=== PATIENT | male | born 1980 | race Caucasian/White ===

== ENCOUNTER 2016-08-16 10:19 | Day surgery (SDC) | payer BC ==
[2016-08-16] MEDS ORDERED: LACTATED RINGERS 1,000 ML IV ONE (10:48)
[2016-08-16 10:59] VITALS: RESP 18; TEMP 97.9
[2016-08-16] MEDS ORDERED: LIDOCAINE 1% 20 ML VIAL (10MG/ML) FOR IV START INTRADERMA ONE (11:12)
[2016-08-16] MEDS ORDERED: PROPOFOL 10 MG/ML 20 ML VIAL IV ONE (12:23)
--- NOTE | 2016-08-16 12:49 | P.PCN ---
Date of Procedure: 08/16/16 Procedure(s) Performed: Procedure: Esophagogastroduodenoscopy and biopsy. Preoperative diagnosis: Chronic reflux symptoms. Postoperative diagnosis: 1. Sliding hiatal hernia with no obvious esophagitis or complicated reflux disease. 2. Mild antral gastritis. Preparation sedation: Was provided by anesthesia. Brief clinical history: The patient is a 55-year-old male who is referred for this evaluation because of chronic reflux symptoms to assess for esophagitis or complicated reflux disease. The patient has frequent reflux and regurgitation and has taken acid suppressive therapy on and off over the last few years. No other alarm symptoms or anemia. Procedure: With the patient on his left lateral decubitus position and after informed consent and adequate sedation, I passed the Olympus-GIF 160 video upper endoscope through the cricopharyngeus down the esophagus. GE junction was irregular and was around 40 cm from the incisors and there was a small sliding hiatal hernia. The esophagus did not show any obvious erosions, ulcers , strictures or Barker's esophagus. The endoscope was then passed into the stomach which was insufflated with air and inspected in detail including the retroflex view in the cardia. There was some mottling and erythema in the antrum but no ulcers or erosions. Pyloric channel, duodenal bulb, post bulbar area and descending duodenum appeared within normal limits. I obtained multiple biopsies from the duodenum, antrum and esophagus then the endoscope was withdrawn. The patient tolerated the procedure well. Plan: The patient was reassured. Will await biopsy results. I suggested antireflux diet and measures and consideration would be made to use the minimal acid suppressive therapy doses at the longest interval required between doses to keep his symptoms under control. He will follow up with you as planned and I will be happy to see in the office of his symptoms change or worsen.
[2016-08-16 13:02] VITALS: BP 121/76; PULSE 68
== END 2016-08-16 13:26 | disposition home or self-care (01) ==
LOC: ORWHC2ENDO 10:19
DX: K29.70 Gastritis, unspecified, without bleeding (principal); K21.9 Gastro-esophageal reflux disease without esophagitis; K44.9 Diaphragmatic hernia without obstruction or gangrene; Z79.899 Other long term (current) drug therapy
CPT/HCPCS: 88305; 88342; 43239; J2704

== ENCOUNTER 2018-12-18 03:28 | Observation (INO) | payer BC, OTHER ==
[2018-12-18 03:36] VITALS: RESP 18
--- NOTE | 2018-12-18 03:59 | ED ---
Chest Pain HPI - General Chief Complaint: Chest Pain Stated Complaint: Chest Pain Lft Arm Pain Time Seen by Provider: 12/18/18 03:47 Source: patient Mode of arrival: wheelchair Limitations: no limitations - History of Present Illness Initial Comments: Shlomo Zavala is a 38 yo male who presents to the emergency department today for evaluation of chest pain. Patient reports that intermittently over the past week she has noticed that he has exertional dyspnea, and easily becomes diaphoretic even when it's not hot outside. Patient reports that this evening he was at [employer] for groceries when he began to feel pressure in his chest, shortness of breath and feeling as though his left arm was getting heavy. Patient had to stop walking and rest. He then returned home and reported feeling better upon laying down, however after discussing symptoms with his she encouraged him to come to the ER for further evaluation. Patient has not seen a PCP for over 2 years, he states that he checks his BP when he is at [facility] and has noted that he has been hypertensive recently. - Related Data Home Medications Medication Instructions Recorded Confirmed Cold Medicine(Unknown) 1 tab PO TID PRN 08/16/16 08/16/16 Omeprazole [PriLOSEC] 10 mg PO DAILY PRN 08/16/16 08/16/16 Allergies Allergy/AdvReac Type Severity Reaction Status Date / Time No Known Allergies Allergy Verified 12/18/18 03:35 Review of Systems ROS Statement: Those systems with pertinent positive or pertinent negative responses have been documented in the HPI. ROS Other: All systems not noted in ROS Statement are negative. EKG Findings - EKG Comments: EKG Findings:: EKG was obtained due to complaining of chest pain, EKG was obtained at 3:44 AM, rate is 89, rhythm is sinus with PACs, there is a normal axis there are normal intervals, NV 160, care is 82, QTc is 464 there are no acute ST elevations or depressions there is no evidence of acute ischemia or infarction Past Medical History Additional Past Medical History / Comment(s): HX KIDNEY STONE IN BLADDER History of Any Multi-Drug Resistant Organisms: None Reported Past Surgical History: Tonsillectomy Additional Past Surgical History / Comment(s): JAWS WIRED FOR FX, Past Anesthesia/Blood Transfusion Reactions: No Reported Reaction Smoking Status: Former smoker Past Alcohol Use History: None Reported Past Drug Use History: None Reported General Exam - General Exam Comments Initial Comments: Physical Exam GENERAL: Patient appears much older than stated age HENT: Normocephalic, Atraumatic. Poor dentition, multiple missing teeth EYES: PERRL, EOMI PULMONARY: Unlabored respirations. No audible rales rhonchi or wheezing was noted. CARDIOVASCULAR: There is a regular rate and rhythm without any murmurs gallops or rubs. ABDOMEN: Morbidly obese Soft and nontender with normal bowel sounds. SKIN: Skin is clear with no lesions or rashes and otherwise unremarkable. : Deferred NEUROLOGIC: Patient is alert and oriented x3. Moving all extremities spontaneously MUSCULOSKELETAL: Normal extremities with adequate strength and full range of motion. No lower extremity swelling or edema. No calf tenderness. 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 ] Respiratory 18 18 18 Rate Blood Pressure 130/78 101/69 O2 Sat by Pulse 97 98 Oximetry Chest Pain MDM - MDM The patient was seen and evaluated upon arrival to the emergency department Patient with a history concerning for acute coronary syndrome as he has exertional chest pain, radiating the left arm with lightheadedness and diaphoresis Patient with multiple risk factors for cardiac disease including obesity, untreated hypertension, former smoker, family history, male gender Cardiac workup was initiated Labs were unremarkable however considering the patient's multiple risk factors and concerning history and do feel he warrants evaluation by cardiology. Patient does not have good outpatient follow-up he has not seen a primary care physician in greater than 2 years. I do not feel would be safe to discharge the patient home at this time as I do not feel he would have appropriate evaluation. Patient is agreeable to staying in the hospital. Patient care was discussed with Dr. Jones of the [facility] who agrees with plan for placing the patient observation with a consult to cardiology. Disposition Clinical Impression: Chest pain Disposition: ADMITTED IP TO THIS [facility] Condition: Stable Referrals: None,Stated [Primary Care Provider] - 1-2 days
[2018-12-18 04:18] LABS: Basophils # (A) 0.1 k/uL (0-0.2); Basophils % (A) 1 %; Eosinophils # (A) 0.3 k/uL (0-0.7); Eosinophils % (A) 4 %; HCT 46.6 % (39.0-53.0); HGB 15.2 gm/dL (13.0-17.5); Lymphocytes # (A) 1.9 k/uL (1.0-4.8); Lymphocytes % (A) 32 %; MCH 27.6 pg (25.0-35.0); MCHC 32.7 g/dL (31.0-37.0); MCV 84.6 fL (80.0-100.0); Mean Platelet Volume 7.5; Monocytes # (A) 0.4 k/uL (0-1.0); Monocytes % (A) 6 %; Neutrophils # (A) 3.3 k/uL (1.3-7.7); Neutrophils % (A) 55 %; Platelet Count 187 k/uL (150-450); RBC 5.51 m/uL (4.30-5.90); RDW 13.2 % (11.5-15.5)
[2018-12-18 04:34] LABS: D-Dimer 0.32 mg/L FEU (<0.60); INR 0.9 (<1.2); Partial Thromboplastin Time 24.3 sec (22.0-30.0); Prothrombin Time 9.7 sec (9.0-12.0)
[2018-12-18 04:36] LABS: ALT 57 U/L (21-72); AST 40 U/L (17-59); African American GFR (CKD) >90 (>60 ml/min/1.73 sqM); Alkaline Phosphatase 120 U/L (38-126); Anion Gap 8 mmol/L; Blood Urea Nitrogen 14 mg/dL (9-20); Calcium 8.8 mg/dL (8.4-10.2); Carbon Dioxide 26 mmol/L (22-30); Chloride 106 mmol/L (98-107); Glucose 104 mg/dL (74-99); Potassium 3.7 mmol/L (3.5-5.1); Sodium 140 mmol/L (137-145); Total Bilirubin 0.5 mg/dL (0.2-1.3); Total Protein 7.3 g/dL (6.3-8.2)
--- NOTE | 2018-12-18 05:01 | XR ---
EXAM: XR Chest, 2 Views CLINICAL HISTORY: Chest Pain TECHNIQUE: Frontal and lateral views of the chest. COMPARISON: No relevant prior studies available. FINDINGS: Lungs: Unremarkable. No consolidation. Pleural space: Unremarkable. No pleural effusions. No pneumothorax. Heart: Unremarkable. No cardiomegaly. Mediastinum: Unremarkable. Bones/joints: Unremarkable. IMPRESSION: No acute cardiopulmonary process.
[2018-12-18] MEDS ORDERED: NITROGLYCERIN SL TABS 0.4 MG TAB SUBLINGUAL PRN (06:05)
--- NOTE | 2018-12-18 09:33 | ECHOF ---
Referral Reason:chest pain MEASUREMENTS -------- HEIGHT: 175.3 cm WEIGHT: 138.3 kg BP: 132/84 RVIDd: 3.1 cm (< 3.3) IVSd: 1.5 cm (0.6 - 1.1) LVIDd: 3.6 cm (3.9 - 5.3) LVPWd: 1.4 cm (0.6 - 1.1) IVSs: 1.6 cm LVIDs: 2.7 cm LVPWs: 1.8 cm LAESV Index (A-L): 13.60 ml/m Ao Diam: 3.2 cm (2.0 - 3.7) AV Cusp: 2.2 cm (1.5 - 2.6) LA Diam: 3.2 cm (2.7 - 3.8) MV EXCURSION: 19.783 mm (> 18.000) MV EF SLOPE: 133 mm/s (70 - 150) EPSS: 0.5 cm MV E Oscar: 0.58 m/s MV DecT: 172 ms MV A Oscar: 0.49 m/s MV E/A Ratio: 1.18 RAP: 5.00 mmHg RVSP: 17.98 mmHg FINDINGS -------- Sinus rhythm. This was a technically difficult study with suboptimal apical views. The left ventricular size is normal. There is moderate concentric left ventricular hypertrophy. O verall left ventricular systolic function is normal with, an EF between 55 - 60 %. The diastolic fi lling pattern is normal for the age of the patient 7.01. The right ventricle is normal in size. Normal LA size by volume 22+/-6 ml/m2. The right atrial size is normal. Lumason used Interatrial and interventricular septum intact. The aortic valve is trileaflet and appears structurally normal. There is no evidence of aortic regu rgitation. There is no evidence of aortic stenosis. The mitral valve is normal. No mitral regurgitation. Trace tricuspid regurgitation present. There is no evidence of pulmonary hypertension. The right ventricular systolic pressure, as measured by Doppler, is 17.98mmHg. There is no pulmonic regurgitation present. The aortic root size is normal. IVC Not well visulized, due to Pt. Obesity. There is no pericardial effusion. CONCLUSIONS -------- 1. Sinus rhythm. 2. This was a technically difficult study with suboptimal apical views. 3. The left ventricular size is normal. 4. There is moderate concentric left ventricular hypertrophy. 5. Overall left ventricular systolic function is normal with, an EF between 55 - 60 %. 6. The diastolic filling pattern is normal for the age of the patient 7.01 7. The right ventricle is normal in size. 8. Normal LA size by volume 22+/-6 ml/m2. 9. The right atrial size is normal. 10. Lumason used 11. Interatrial and interventricular septum intact. 12. The aortic valve is trileaflet and appears structurally normal. 13. There is no evidence of aortic regurgitation. 14. There is no evidence of aortic stenosis. 15. The mitral valve is normal. 16. No mitral regurgitation. 17. Trace tricuspid regurgitation present. 18. There is no evidence of pulmonary hypertension. 19. The right ventricular systolic pressure, as measured by Doppler, is 17.98mmHg. 20. There is no pulmonic regurgitation present. 21. The aortic root size is normal. 22. IVC Not well visulized, due to Pt. Obesity. 23. There is no pericardial effusion. RESEARCH PROGRAM COORDINATOR: Christal Bella RDCS
[2018-12-18 10:23] LABS: Cholesterol 230 mg/dL (<200); HDL Cholesterol 36 mg/dL (40-60); LDL Cholesterol,Calculated 154 mg/dL (0-99); Triglycerides 201 mg/dL (<150)
--- NOTE | 2018-12-18 11:22 | P.CRDCN ---
History of Present Illness History of present illness: This is a 38-year-old male past medical history significant for kidney stone. He also has a remote history of gastroesophageal reflux disease. He denies history of coronary artery disease, hypertension, dyslipidemia or diabetes mellitus. He does not follow with a electrical tests supervisor for any reason. His father has a history of premature coronary artery disease in his first cardiac e vent in his early 40s. We have been asked to see him in consultation secondary to chest discomfort. He states intermittently for the previous few weeks he has been noticing a discomfort in the midsternal region. This comes at different times throughout the day and is intermittent and not necessarily associated with exertion or activity. He also describes a heavy sensation in both of his should ers. He states he was recently cutting grass and he had to stop due to increased fatigue of his upper extremities. Last night while he was doing some shopping at [facility] he became acutely short of breath and noticed heavy sensation in the left arm. 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 He denies any associated palpitations, nausea, vomiting or diaphoresis. He also discusses that his family's been telling him he has been slow to respond when I asked him typical questions lately and his states he has not been acting like himself. EKG reveals sinus mechanism with PACs noted, no acute ST or T wave abnormalities noted. Chest x-ray is negative for acute cardiopulmonary process. Laboratory data reviewed, WBC 6.0, hemoglobin 15.2, platelets 187, d-dimer 0.32, sodium 140, potassium 3.7, creatinine 1.16, magnesium 2.0, cardiac enzymes negative 2, LDL 154, HDL 36, triglycerides 201 and total cholesterol 230. At the time of my exam: CONSTITUTIONAL: Denies fever. Denies chills. EYES: Denies blurred vision. Denies vision changes. Denies eye pain. EARS, NOSE, MOUTH & THROAT: Denies headache. Denies sore throat. Denies ear pain. CARDIOVASCULAR: Denies chest pain. Denies shortness of breath. Denies orthopnea. Denies PND. Denies palpitations. RESPIRATORY: Denies cough. GASTROINTESTINAL: Denies abdominal pain. Denies diarrhea. Denies constipation. Denies nausea. Denies vomiting. MUSCULOSKELETAL: Denies myalgias. INTEGUMENTARY: Denies pruitis. Denies rash. NEUROLOGIC: Denies numbness. Denies tingling. Denies weakness. PSYCHIATRIC: Denies anxiety. Denies depression. ENDOCRINE: Denies fatigue. Denies weight change. Denies polydipsia. Denies polyurina. GENITOURINARY: Denies burning, hematuria or urgency with micturation. HEMATOLOGIC: Denies history of anemia. Denies bleeding. Blood pressure 132/84 heart rate 81 afebrile maintaining oxygen saturation on room air GENERAL: This is a 38-year-old male in no apparent distress at the time of my examination. Obese. HEENT: Head is atraumatic, normocephalic. Pupils are equal, round. Sclerae anicteric. Conjunctivae are clear. Mucous membranes of the mouth are moist. Neck is supple. There is no jugular venous distention. No carotid bruit is heard. LUNGS: Clear to auscultation no wheezes, rales or rhonchi. No chest wall tenderness is noted on palpation or with deep breathing. HEART: Regular rate and rhythm without murmurs, rubs or gallops. S1 and S2 heard. ABDOMEN: Soft, nontender. Bowel sounds are heard. No organomegaly noted. EXTREMITIES: No evidence of peripheral edema and no calf tenderness noted. VASCULAR: Radial and dorsalis pedis pulses palpated, no evidence of clubbing. NEUROLOGIC: Patient is awake, alert and oriented x3. ASSESSMENT Chest pain, atypical for angina. An acute coronary event has been ruled out. Dyslipidemia Family history of premature coronary artery disease Morbid obesity, BMI 45 PLAN Acute coronary event has been ruled out. Perform stress echocardiogram to assess for stress-induced cardiac ischemia. Obtain 2-D echocardiogram and Doppler study to assess cardiac structure and function. Lifestyle modifications for lowering of cholesterol recommended in the form of diet and exercise. If stress test is normal he is stable from a cardiac perspective. Follow up in the office with Dr. Moraes in 2-3 weeks. Thank you kindly for this consultation. Nurse Practitioner note has been reviewed, I agree with a documented findings and plan of care. Patient was seen and examined. Past Medical History Additional Past Medical History / Comment(s): HX KIDNEY STONE IN BLADDER History of Any Multi-Drug Resistant Organisms: None Reported Past Surgical History: Tonsillectomy Additional Past Surgical History / Comment(s): JAWS WIRED FOR FX, Past Anesthesia/Blood Transfusion Reactions: No Reported Reaction Smoking Status: Former smoker Past Alcohol Use History: None Reported Past Drug Use History: None Reported Medications and Allergies Home Medications Medication Instructions Recorded Confirmed Type No Known Home Medications 12/18/18 12/18/18 History Allergies Allergy/AdvReac Type Severity Reaction Status Date / Time No Known Allergies Allergy Verified 12/18/18 08:05 Physical Exam Vitals: Vital Signs Temp Pulse Pulse Pulse Resp BP BP 12/18/18 07:02 97.5 F L 81 18 132/84 12/18/18 06:21 97.8 F 73 18 107/73 12/18/18 05:06 97.8 F 82 18 101/69 12/18/18 04:00 92 18 12/18/18 03:32 98.0 F 99 18 130/78 Pulse Ox 12/18/18 07:02 97 12/18/18 06:21 100 12/18/18 05:06 98 12/18/18 04:00 12/18/18 03:32 97 Intake and Output 12/17/18 12/18/18 12/18/18 22:59 06:59 14:59 Other: Weight 138.346 kg Results 12/18/18 03:50 12/18/18 03:50 Cardiac Enzymes 12/18/18 12/18/18 Range/Units 03:50 03:50 AST 40 (17-59) U/L Troponin I <0.012 (0.000-0.034) ng/mL Coagulation 12/18/18 Range/Units 03:50 PT 9.7 (9.0-12.0) sec APTT 24.3 (22.0-30.0) sec CBC 12/18/18 Range/Units 03:50 WBC 6.0 (3.8-10.6) k/uL RBC 5.51 (4.30-5.90) m/uL Hgb 15.2 (13.0-17.5) gm/dL Hct 46.6 (39.0-53.0) % Plt Count 187 (150-450) k/uL Comprehensive Metabolic Panel 12/18/18 Range/Units 03:50 Sodium 140 (137-145) mmol/L Potassium 3.7 (3.5-5.1) mmol/L Chloride 106 (98-107) mmol/L Carbon Dioxide 26 (22-30) mmol/L BUN 14 (9-20) mg/dL Creatinine 1.16 (0.66-1.25) mg/dL Glucose 104 H (74-99) mg/dL Calcium 8.8 (8.4-10.2) mg/dL AST 40 (17-59) U/L ALT 57 (21-72) U/L Alkaline Phosphatase 120 (38-126) U/L Total Protein 7.3 (6.3-8.2) g/dL Albumin 4.0 (3.5-5.0) g/dL Current Medications Generic Name Dose Route Start Last Admin Trade Name Freq PRN Reason Stop Dose Admin Aspirin 325 mg 12/19/18 09:00 Aspirin PO DAILY NIMA Nitroglycerin 0.4 mg 12/18/18 06:05 Nitrostat SUBLINGUAL Q5M PRN Chest Pain Intake and Output 12/17/18 12/18/18 12/18/18 22:59 06:59 14:59 Other: Weight 138.346 kg 12/18/18 03:50 12/18/18 03:50
--- NOTE | 2018-12-18 12:04 | P.STRESS ---
- Stress Test Note Stress Test Results/Findings: Exam Performed: stress echo exercise with con Exam Date: 12/18/18 Reason for Exam: CHEST PAIN Height: 5 ft 9 in Weight: 138.346 kg Protocol: SCOTT Stage: 3 Duration of Exercise: 7:30 Resting Heart Rate: 83 Resting Blood Pressure: 144/76 Maximum Achieved Heart Rate: 160 Maximum Achieved Blood Pressure: 220/84 85% PMHR: 154 100% PMHR: 181 METS: 9.1 Technologist Comment: Stress Test Results/Findings: This is a of 38-year-old gentleman with history of ischemic heart disease in the family is admitted to the hospital with complaints of chest pain. EKGs and cardiac enzymes are negative. Stress data: Baseline EKG showed sinus rhythm with normal NH interval and QRS duration with occasional PVCs. Blood pressure at rest is 144/76 with pulse rate of 83. Patient walked on the Scott protocol for 7 minutes and 30 seconds achieving a maximal heart rate of 160 with a blood pressure 189/85. EKGs taken during and after exercise did not reveal any changes of ischemia. Patient did not express any chest pain. Echo data: The course studies done with contrast. There appears to be normal wa ll motion and thickening at rest. There is augmentation of wall motion and thickening in all the segments with exercise. Final impression #1. Negative stress test #2. Negative stress echo
[2018-12-18 12:34] VITALS: BP 113/74; PULSE 92; TEMP 98.1
--- NOTE | 2018-12-18 18:04 | P.HPIM ---
History of Present Illness H&P Date: 12/18/18 (Delayed carting seen at 1530) Chief Complaint: chest pain Patient 38-year-old male past medical history of GERD, obesity, and prior kidney stones who presented to the emergency department with complaints of chest breath. In the ER he underwent an extensive evaluation. His initial EKG was nonischemic. Initial troponin was negative. His initial vital signs were within normal limits. He was given an aspirin and admitted for further monitoring. He underwent 3 troponins which were negative. Cardiology was consulted. He underwent an exercise stress echo which showed an ejection fraction 55-60%, and no signs of ischemia. He was subsequently cleared by car diology for discharge. Patient seen and examined at bedside with present. He has been having intermittent chest pain and shortness of breath as prior to the December. 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 Since that point in time he has had intermittent chest pain and shortness of breath. Last night he started having some centralized chest pain or shortness of breath at [facility]. He went home and laid down which has been relieving his chest pain. However he did not at this point in time. He also notes that he has been having coughing fits where he coughs until he feels he cannot breathe and then has some tunneling vision but does not actually blacked out. He reports that when he experienced chest pain last night he had some left sided arm heaviness and numbness and tingling as well as feeling slightly dizzy. He had been seeing Dr. Moura in the past but has not seen him last several years. He has not been following with anybody. 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 He reports no history of tobacco abuse. He states that his father had significant heart disease but he is unsure if he had a Heart attack. He denies any wheezing, abnormal runny nose, stuffy nose, or productive cough. He reports that he has difficulty with acid reflux, but this is intermittent. He has been on a PPI in the past but stopped this. He reports that he consistently regurgitates food, but had a negative scope and has not been seen by GI in the last several years. We discussed his elevated cholesterol levels and initiating dietary changes versus a statin medication. At this point time he wishes to attempt dietary changes. We discussed the importance of him following up with a family physician for the above-stated complaint. He'll follow-up with Dr. Moura. Review of Systems Pertinent positives and negatives as discussed in HPI, a complete review of systems was performed and all other systems are negative. Past Medical History Additional Past Medical History / Comment(s): HX KIDNEY STONE IN BLADDER, GERD, significant exposure to chemicals. History of Any Multi-Drug Resistant Organisms: None Reported Past Surgical History: Tonsillectomy Additional Past Surgical History / Comment(s): JAWS WIRED FOR FX, Past Anesthesia/Blood Transfusion Reactions: No Reported Reaction Smoking Status: Former smoker Past Alcohol Use History: None Reported Past Drug Use History: None Reported Additional History: Works in [employer], lives with sife and 7 children - Past Family History father Additional Family Medical History / Comment(s): heart disease Medications and Allergies Home Medications Medication Instructions Recorded Confirmed Type No Known Home Medications 12/18/18 12/18/18 History Allergies Allergy/AdvReac Type Severity Reaction Status Date / Time No Known Allergies Allergy Verified 12/18/18 08:05 Physical Exam Osteopathic Statement: *. No significant issues noted on an osteopathic structural exam other than those noted in the History and Physical/Consult. Vitals: Vital Signs Temp Pulse Pulse Pulse Resp BP BP 12/18/18 12:33 98.1 F 92 18 113/74 12/18/18 07:02 97.5 F L 81 18 12/18/18 06:21 97.8 F 73 18 107/73 12/18/18 05:06 97.8 F 82 18 101/69 12/18/18 04:00 92 18 12/18/18 03:32 98.0 F 99 18 130/78 BP Pulse Ox 12/18/18 12:33 97 12/18/18 07:02 132/84 97 12/18/18 06:21 100 12/18/18 05:06 98 12/18/18 04:00 12/18/18 03:32 97 Intake and Output 12/18/18 12/18/18 12/18/18 06:59 14:59 22:59 Intake Total 440 Balance 440 Intake: Oral 240 Other 200 Other: Voiding Method Toilet Weight 138.346 kg General: non toxic, no distress, appears at stated age, Obesity Derm: no unusual rashes/lesions no unusual ecchymoses, warm, dry Head: atraumatic, normocephalic, symmetric Eyes: EOMI, no lid lag, anicteric sclera, pupils equal round reactive to light ENT: Nose and ears atraumatic, no thrush, no pharyngeal erythema Neck: No thyromegaly, no cervical lymphadenopathy, trachea midline, supple Mouth: no lip lesion, mucus membranes moist, poor dentition Cardiovascular: S1S2 reg, no murmur, positive posterior tibial pulse bilateral, no edema, capillary refill less than 2 seconds, + reproducible chest pain Lungs: CTA bilateral, no rhonchi, no rales , no accessory muscle use Abdominal: soft, nontender to palpation, no guarding, no appreciable organomegaly, normal bowel sounds Ext: no gross muscle atrophy, muscle strength 5 out of 5 in all 4 extremities grossly, no contractures, Neuro: CN II-XI grossly intact, light touch intact all 4 extremities, finger to nose within normal limits, Psych: Alert, oriented, appropriate affect Results CBC & Chem 7: 12/18/18 03:50 12/18/18 03:50 Labs: Abnormal Lab Results - Last 24 Hours (Table) 12/18/18 12/18/18 Range/Units 03:50 09:39 Glucose 104 H (74-99) mg/dL Triglycerides 201 H (<150) mg/dL Cholesterol 230 H (<200) mg/dL LDL Cholesterol, Calc 154 H (0-99) mg/dL HDL Cholesterol 36 L (40-60) mg/dL Chest x-ray: report reviewed Thrombosis Risk Factor Assmnt - DVT/VTE Prophylaxis DVT/VTE Prophylaxis: Low risk, early ambulation encouraged - Choose All That Apply Any of the Below Risk Factors Present?: No Other Risk Factors: No Thrombosis Risk Factor Assessment Level: Very Low Risk Assessment and Plan Assessment: Atypical chest pain -Stress test negative, troponin negative -Continue outpatient evaluation with Dr. Herring Dyslipidemia -Statin medication suggested however patient would like to try weight loss Morbid obesity with BMI 45 -Outpatient structured weight loss Shortness of breath -Likely multifactorial due to decreased exercise tolerance due to morbid obesity, possible component of asthma/COPD, could also be a cough secondary to significant acid reflux. Emphasized the importance of continued follow-up with PCP for further monitoring and testing. This note will serve as H adn P and discharge summary. Patient will follow with Dr. Moura and Dr. Herring for further evaluation. I discussed with him the importance of follow-up to complete testing such as pulmonary function testing to rule out exercise-induced asthma or COPD secondary to significant factory work. I also suggested trial of the PPI at this point in time he declined. I suggested that he follow-up with Dr. Moura regarding this. He also wishes to attempt dietary modification order to control his cholesterol profile. He is not comfortable starting a statin medication. He realizes he will need a 10% reduction in his weight. I also discussed the possibility of costochondritis and possibly arthritis of the cervical spine causing his arm sym ptoms. Again suggested follow-up with the primary care physician as this is not a be further evaluated in the hospital. I did tell him and his that should he have significant chest pain or shortness of breath he should return to the hospital and seek further evaluation.
[2018-12-19] MEDS ORDERED: ASPIRIN 325 MG TAB PO SCH (09:00)
--- NOTE | 2018-12-21 17:02 | ECHOS ---
Stress Test Results/Findings: Exam Performed: stress echo exercise with con Exam Date: 12/18/18 Reason for Exam: CHEST PAIN Height: 5 ft 9 in Weight: 138.346 kg Protocol: SCOTT Stage: 3 Duration of Exercise: 7:30 Resting Heart Rate: 83 Resting Blood Pressure: 144/76 Maximum Achieved Heart Rate: 160 Maximum Achieved Blood Pressure: 220/84 85% PMHR: 154 100% PMHR: 181 METS: 9.1 Technologist Comment: Stress Test Results/Findings: This is a of 38-year-old gentleman with history of ischemic heart disease in the family is admitted to the hospital with complaints of chest pain. EKGs and cardiac enzymes are negative. Stress data: Baseline EKG showed sinus rhythm with normal [place] interval and QRS duration with occasional PVCs. Blood pressure at rest is 144/76 with pulse rate of 83. Patient walked on the Scott protocol for 7 minutes and 30 seconds achieving a maximal heart rate of 160 with a blood pressure 189/85. EKGs taken during and after exercise did not reveal any changes of ischemia. Patient did not express any chest pain. Echo data: The course studies done with contrast. There appears to be normal wall motion and thickening at rest. There is augmentation of wall motion and thickening in all the segments with exercise. Final impression #1. Negative stress test #2. Negative stress echo MTDD
== END 2018-12-18 16:45 | disposition home or self-care (01) ==
LOC: EC 03:28 → 1SOBS 06:07
PROVIDERS: ADMIT Internal Medicine; ATTEND Internal Medicine
DX: R07.89 Other chest pain (principal); R06.02 Shortness of breath; I10 Essential (primary) hypertension; E66.01 Morbid (severe) obesity due to excess calories; Z68.42 Body mass index [BMI] 45.0-49.9, adult; K21.9 Gastro-esophageal reflux disease without esophagitis; E78.5 Hyperlipidemia, unspecified; Z77.098 Contact with and (suspected) exposure to other hazardous, chiefly nonmedicinal, chemicals; Z87.442 Personal history of urinary calculi; Z87.891 Personal history of nicotine dependence; Z82.49 Family history of ischemic heart disease and other diseases of the circulatory system
CPT/HCPCS: 99285; 36415; 93005; 85379; 80061; 80053; 83735; 84484; 85025; 85610; 85730; 71046; G0378; C8929; C8930; Q9950; 93306; 93351

== ENCOUNTER 2020-07-12 22:49 | Emergency (ER) | payer OTHER ==
[2020-07-12 22:54] VITALS: BP 140/89; PULSE 93; RESP 16; TEMP 98.5
[2020-07-13 00:31] LABS: Basophils # (A) 0.1 k/uL (0-0.2); Basophils % (A) 2 %; Eosinophils # (A) 0.2 k/uL (0-0.7); Eosinophils % (A) 5 %; HCT 47.9 % (39.0-53.0); HGB 16.6 gm/dL (13.0-17.5); Lymphocytes # (A) 1.5 k/uL (1.0-4.8); Lymphocytes % (A) 31 %; MCH 28.7 pg (25.0-35.0); MCHC 34.6 g/dL (31.0-37.0); Monocytes # (A) 0.4 k/uL (0-1.0); Monocytes % (A) 9 %; Neutrophils # (A) 2.5 k/uL (1.3-7.7); Neutrophils % (A) 52 %; Platelet Count 183 k/uL (150-450); RBC 5.77 m/uL (4.30-5.90); RDW 13.1 % (11.5-15.5); WBC 4.8 k/uL (3.8-10.6)
--- NOTE | 2020-07-13 00:36 | ED ---
Abdominal Pain HPI - General Chief Complaint: Urogenital Stated Complaint: Back pain Time Seen by Provider: 07/12/20 23:14 Source: patient Mode of arrival: ambulatory Limitations: no limitations - History of Present Illness Initial Comments: This patient is a 39-year-old man who presents with some periumbilical and left mid back pain that is been coming and going over the past few days. The patient states that he is aware of having an umbilical hernia that sometimes causes pain when he does heavy lifting. 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 I then also noticed that his urine had been darker than usual so he went to see Dr. Claire. The symptoms recurred over the next day so he will return to the clinic and when his urine was checked he reports that there was some blood seen and he was started on Bactrim for this. The patient states that he does have follow-up with a surgeon as outpatient next week for a consultation related to the hernia, and he was told by his physician to come in the hospital and have a CAT scan related to the hernia. MD Complaint: abdominal pain, flank pain -: days(s) Location: periumbilical, L flank Severity: moderate Quality: aching Consistency: now resolved Improves With: nothing Worsens With: nothing Associated Symptoms: other (Dark urine) - Related Data Home Medications Medication Instructions Recorded Confirmed No Known Home Medications 12/18/18 12/18/18 Allergies Allergy/AdvReac Type Severity Reaction Status Date / Time No Known Allergies Allergy Verified 07/12/20 22:55 Review of Systems ROS Statement: Those systems with pertinent positive or pertinent negative responses have been documented in the HPI. ROS Other: All systems not noted in ROS Statement are negative. Constitutional: Denies: fever, chills Respiratory: Denies: cough, dyspnea Cardiovascular: Denies: chest pain, palpitations, edema Gastrointestinal: Reports: as per HPI. Denies: nausea, vomiting, diarrhea, constipation Genitourinary: Reports: other (Dark urine). Denies: urgency, dysuria, frequency, hematuria, discharge, testicular pain, testicular mass Musculoskeletal: Reports: as per HPI, back pain Skin: Denies: rash Neurological: Denies: headache, weakness, numbness Past Medical History Additional Past Medical History / Comment(s): HX KIDNEY STONE IN BLADDER, GERD, significant exposure to chemicals. History of Any Multi-Drug Resistant Organisms: None Reported Past Surgical History: Tonsillectomy Additional Past Surgical History / Comment(s): JAWS WIRED FOR [employer], Past Anesthesia/Blood Transfusion Reactions: No Reported Reaction Past Alcohol Use History: None Reported Past Drug Use History: None Reported - Past Family History father Additional Family Medical History / Comment(s): heart disease General Exam Limitations: no limitations General appearance: alert, in no apparent distress Head exam: Present: atraumatic, normocephalic Eye exam: Present: normal appearance. Absent: scleral icterus, conjunctival injection ENT exam: Present: normal oropharynx Neck exam: Present: normal inspection Respiratory exam: Present: normal lung sounds bilaterally. Absent: respiratory distress, wheezes, rales, rhonchi, stridor Cardiovascular Exam: Present: regular rate, normal rhythm, normal heart sounds. Absent: systolic murmur, diastolic murmur, rubs, gallop GI/Abdominal exam: Present: soft. Absent: distended, tenderness, guarding, rebound, mass Extremities exam: Present: normal inspection, normal capillary refill. Absent: pedal edema, calf tenderness Back exam: Present: normal inspection, paraspinal tenderness ((Thoracic back). Absent: CVA tenderness (R), CVA tenderness (L) Neurological exam: Present: alert, normal gait. Absent: motor sensory deficit Skin exam: Present: warm, dry, intact, normal color. Absent: rash Course Vital Signs 07/12/20 22:50 Temperature 98.5 F Pulse Rate 93 Respiratory 16 Rate Blood Pressure 140/89 O2 Sat by Pulse 100 Oximetry Medical Decision Making - Lab Data Result diagrams: 07/13/20 00:18 07/13/20 00:18 Lab Results 07/13/20 07/13/20 07/13/20 Range/Units 00:18 00:18 00:18 WBC 4.8 (3.8-10.6) k/uL RBC 5.77 (4.30-5.90) m/uL Hgb 16.6 (13.0-17.5) gm/dL Hct 47.9 (39.0-53.0) % MCV 83.0 (80.0-100.0) fL MCH 28.7 (25.0-35.0) pg MCHC 34.6 (31.0-37.0) g/dL RDW 13.1 (11.5-15.5) % Plt Count 183 (150-450) k/uL MPV 8.0 Neutrophils % 52 % Lymphocytes % 31 % Monocytes % 9 % Eosinophils % 5 % Basophils % 2 % Neutrophils # 2.5 (1.3-7.7) k/uL Lymphocytes # 1.5 (1.0-4.8) k/uL Monocytes # 0.4 (0-1.0) k/uL Eosinophils # 0.2 (0-0.7) k/uL Basophils # 0.1 (0-0.2) k/uL Sodium 138 (137-145) mmol/L Potassium 4.3 (3.5-5.1) mmol/L Chloride 105 (98-107) mmol/L Carbon Dioxide 24 (22-30) mmol/L Anion Gap 9 mmol/L BUN 13 (9-20) mg/dL Creatinine 0.97 (0.66-1.25) mg/dL Est GFR (CKD-EPI)AfAm >90 (>60 ml/min/1.73 sqM) Est GFR (CKD-EPI)NonAf >90 (>60 ml/min/1.73 sqM) Glucose 106 H (74-99) mg/dL Calcium 8.9 (8.4-10.2) mg/dL Total Bilirubin 0.5 (0.2-1.3) mg/dL AST 46 (17-59) U/L ALT 78 H (4-49) U/L Alkaline Phosphatase 109 (38-126) U/L Total Protein 8.0 (6.3-8.2) g/dL Albumin 4.3 (3.5-5.0) g/dL Amylase 64 (30-110) U/L Lipase 170 (23-300) U/L Urine Color Yellow Urine Appearance Clear (Clear) Urine pH 6.5 (5.0-8.0) Ur Specific [place] 1.024 (1.001-1.035) Urine Protein 1+ H (Negative) Urine Glucose (UA) Negative (Negative) Urine Ketones Negative (Negative) Urine Blood Moderate H (Negative) Urine Nitrite Negative (Negative) Urine Bilirubin Negative (Negative) Urine Urobilinogen 3.0 (<2.0) mg/dL Ur Leukocyte Esterase Negative (Negative) Urine RBC 176 H (0-5) /hpf Urine WBC 3 (0-5) /hpf Hyaline Casts 6 H (0-2) /lpf Urine Mucus Rare H (None) /hpf Disposition Clinical Impression: Kidney stone on left side, Umbilical hernia Disposition: HOME SELF-CARE Condition: Good Instructions (If sedation given, give patient instructions): Kidney Stones (ED), Umbilical Hernia (ED) Referrals: Flakito Moura MD [Primary Care Provider] - 1-2 days Rio Pillai MD [STAFF PHYSICIAN] - 1-2 days
[2020-07-13 00:38] LABS: Appearance,Urine Clear (Clear); Bilirubin,Urine Negative (Negative); Blood,Urine Moderate (Negative); Color,Urine Yellow; Glucose,Urine (UA) Negative (Negative); Hyaline Casts,Urine 6 /lpf (0-2); Ketones,Urine Negative (Negative); Leukocyte Esterase,Urine Negative (Negative); Mucus,Urine Rare /hpf; Nitrite,Urine Negative (Negative); PH, Urine 6.5 (5.0-8.0); Protein,Urine 1+ (Negative); RBC,Urine 176 /hpf (0-5); Specific Gravity,Urine 1.024 (1.001-1.035); WBC,Urine 3 /hpf (0-5)
[2020-07-13 00:41] LABS: ALT 78 U/L (4-49); AST 46 U/L (17-59); African American GFR (CKD) >90 (>60 ml/min/1.73 sqM); Albumin 4.3 g/dL (3.5-5.0); Alkaline Phosphatase 109 U/L (38-126); Amylase 64 U/L (30-110); Anion Gap 9 mmol/L; Blood Urea Nitrogen 13 mg/dL (9-20); Calcium 8.9 mg/dL (8.4-10.2); Carbon Dioxide 24 mmol/L (22-30); Chloride 105 mmol/L (98-107); Glucose 106 mg/dL (74-99); Lipase 170 U/L (23-300); Non-African American GFR(CKD) >90 (>60 ml/min/1.73 sqM); Potassium 4.3 mmol/L (3.5-5.1); Sodium 138 mmol/L (137-145); Total Bilirubin 0.5 mg/dL (0.2-1.3)
--- NOTE | 2020-07-13 01:28 | CT ---
EXAM: CT Abdomen and Pelvis Without Intravenous Contrast CLINICAL HISTORY: ITS.REASON CT Reason: stone protocol TECHNIQUE: Axial computed tomography images of the abdomen and pelvis without intravenous contrast. CTDI is 31.57 mGy and DLP is 1831 mGy-cm. This CT exam was performed using one or more of the following dose reduction techniques: automated exposure control, adjustment of the mA and/or kV according to patient size, and/or use of iterative reconstruction technique. COMPARISON: No relevant prior studies available. FINDINGS: Lung bases: Unremarkable. No mass. No consolidation. ABDOMEN: Liver: Hepatic steatosis. Gallbladder and bile ducts: Unremarkable. No calcified stones. No ductal dilation. Pancreas: Unremarkable. No ductal dilation. Spleen: Unremarkable. No splenomegaly. Adrenals: Unremarkable. No mass. Kidneys and ureters: 11 mm calcification noted within the left renal pelvis with mild asymmetric thickening of the left urothelium. No obvious surrounding left perinephric fat stranding definitively identified. No right-sided nephrolithiasis. No hydronephrosis identified bilaterally. No ureteral stones. Stomach and bowel: Evaluation of the bowel mucosa is slightly limited without contrast; however, no definite focal asymmetry suggested. No evidence for bowel obstruction. PELVIS: Appendix: A normal caliber appendix is noted medial to the cecum in the right lower quadrant. Bladder: Unremarkable. No stones. Reproductive: Unremarkable as visualized. ABDOMEN and PELVIS: Intraperitoneal space: Unremarkable. No free air. No significant fluid collection. Bones/joints: No acute fracture. No dislocation. Soft tissues: Unremarkable. Vasculature: Unremarkable. No abdominal aortic aneurysm. Lymph nodes: Unremarkable. No enlarged lymph nodes. IMPRESSION: 11 mm calcification noted within the left renal pelvis with mild asymmetric thickening of the left urothelium. No obvious surrounding left perinephric fat stranding definitively identified. No right-sided nephrolithiasis. No hydronephrosis identified bilaterally. No ureteral stones. No bladder calcifications.
== END 2020-07-13 01:47 | disposition home or self-care (01) ==
LOC: EC 22:49
DX: N20.0 Calculus of kidney (principal); K42.9 Umbilical hernia without obstruction or gangrene
CPT/HCPCS: 36415; 74176; 80053; 81001; 82150; 83690; 85025; 99284